=== PATIENT | male | born 1995 | race American Indian/Alaskan Native ===

== ENCOUNTER 2016-12-08 04:33 | Emergency (ER) | payer SELFPAY ==
[2016-12-08 05:29] VITALS: BP 98/54
--- NOTE | 2016-12-08 05:59 | XRay Report ---
FINAL REPORT PROCEDURE: XR WRIST 3 RT TECHNIQUE: RIGHT wrist radiographs, including AP, lateral, and oblique views. CPT 61441 HISTORY: Fall, Pain, send for report COMPARISON: No prior studies are available for comparison. FINDINGS: Fracture (s) and/or Dislocation(s): None . Alignment: Normal . Joint space(s): Normal . Soft tissues: Normal . Bone mineralization: Normal . Foreign bodies: None . IMPRESSION: Normal Examination.
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
[2016-12-08] MEDS ORDERED: NORCO 5/325 PO ONE (08:19)
== END 2016-12-08 08:36 | disposition home or self-care (01) ==
LOC: ED 04:33
DX: S69.91XA Unspecified injury of right wrist, hand and finger(s), initial encounter (principal); F17.200 Nicotine dependence, unspecified, uncomplicated; V29.00XA Motorcycle driver injured in collision with unspecified motor vehicles in nontraffic accident, initial encounter; Y92.413 State road as the place of occurrence of the external cause; Y93.89 Activity, other specified; Y99.8 Other external cause status